=== PATIENT | female | born 1960 | race Caucasian/White ===

== ENCOUNTER 2016-02-21 13:32 | Emergency (ER) | payer OTHER ==
[2016-02-21 13:37] VITALS: TEMP 98.8
--- NOTE | 2016-02-21 13:48 | CPEKG ---
Heart Rate: 87 RR Interval: 690 P-R Interval: 140 QRSD Interval: 86 QT Interval: 412 QTC Interval: 496 P [place]: 50 QRS [place]: 19 T Wave [place]: 47 EKG Severity - BORDERLINE ECG - EKG Impression: SINUS RHYTHM EKG Impression: BORDERLINE INFERIOR Q WAVES EKG Impression: BORDERLINE PROLONGED QT INTERVAL Electronically Signed By: Clint Worley 21-Feb-2016 13:57:14
--- NOTE | 2016-02-21 13:57 | EDPHY ---
H & P Time Seen by Provider: 02/21/16 13:41 HPI/ROS: CHIEF COMPLAINT: Shortness of breath for 2 weeks HISTORY OF PRESENT ILLNESS: This 56-year-old woman works at [employer] but has been on vacation for the past 2 weeks. She describes having a nonproductive cough and some congestion for the past 2 weeks associated with some tightness in her upper chest and shortness of breath especially with exertion. She does not have hemoptysis, or leg swelling. No recent immobilization. She does not have orthopnea. Her coworkers brought her to the emergency department today for evaluation. REVIEW OF SYSTEMS: Eye: no change in vision ENT: no sore throat, no jaw pain or neck symptoms Cardiac: Occasionally feels her heart pounding fast in her chest but no syncope. Pulmonary: HPI Abdomen: no vomiting, diarrhea, abdominal pain. No nausea. Musculoskeletal: no back pain or leg swelling Skin: no rash Neuro: no headache Constitutional: no fever : no urinary symptoms A comprehensive 10 point review of systems is otherwise negative aside from elements mentioned in the history of present illness. PAST MEDICAL HISTORY: Hypothyroid and anxiety. Denies hypertension or diabetes. Denies hypercholesterolemia. Social history: Former smoker, none recently. No cocaine/drugs. Father had myocardial infarction at her age. General Appearance: Alert and conversant, cooperative. Eyes: No scleral icterus. ENT, Mouth: Normal mucous membranes. Respiratory: Normal respiratory effort, breath sounds equal, lungs are clear to auscultation. Cardiovascular: Regular rate and rhythm. No murmur. Gastrointestinal: Abdomen is soft and non tender. Neurological: Alert and oriented x3. Normally conversant. Face symmetric, normal movement and sensation in all extremities. Skin: Warm and dry, no rashes. Musculoskeletal: No peripheral edema and no joint swelling. No calf tenderness. Psychiatric: Not agitated. Emergency Department course/MDM: More likely upper respiratory infection than cardiac disease or venous thromboembolism. Plan for EKG, chest x-ray, troponin and D-dimer. 1429: D-dimer noted at 0.38, less than 0.5; I think this result makes pulmonary embolism extremely unlikely at this time. Results discussed with patient. I think most likely low grade URI with cough present. ACS considered but think unlikely considering the entire clinical picture including negative EKG and troponin. Smoking Status: Former smoker Constitutional: Initial Vital Signs Temperature (C) 37.1 C 02/21/16 13:35 Heart Rate 84 02/21/16 13:35 Respiratory Rate 14 02/21/16 13:35 Blood Pressure 161/100 H 02/21/16 13:35 O2 Sat (%) 97 02/21/16 13:35 O2 Delivery Mode Room Air Allergies/Adverse Reactions: erythromycin base Allergy (Verified 02/21/16 13:37) Medical Decision Making - Diagnostics EKG Interpretation: 12-lead EKG interpreted by me; official reading is in trace master. My interpretation is sinus rhythm, probably non clinically significant inferior Q- waves noted, borderline prolonged QT. Imaging: Chest x-ray viewed independently by myself in PACs is normal. Differential Diagnosis: Differential diagnosis considered for shortness of breath including but not limited to pulmonary infectious process, COPD, asthma, pulmonary embolus and congestive heart failure. - Data Points Laboratory Results: Laboratory Results 02/21/16 13:56 02/21/16 13:56 02/21/16 13:56 WBC 5.71 10^3/uL (3.80-9.50) RBC 4.42 10^6/uL (4.18-5.33) Hgb 14.0 g/dL (12.6-16.3) Hct 39.0 % (38.0-47.0) MCV 88.2 fL (81.5-99.8) MCH 31.7 pg (27.9-34.1) MCHC 35.9 g/dL (32.4-36.7) RDW 12.3 % (11.5-15.2) Plt Count 285 10^3/uL (150-400) MPV 9.6 fL (8.7-11.7) Neut % (Auto) 57.9 % (39.3-74.2) Lymph % (Auto) 32.7 % (15.0-45.0) [place] % (Auto) 7.4 % (4.5-13.0) Eos % (Auto) 1.4 % (0.6-7.6) Baso % (Auto) 0.4 % (0.3-1.7) Nucleat RBC Rel Count 0.0 % (0.0-0.2) Absolute Neuts (auto) 3.31 10^3/uL (1.70-6.50) Absolute Lymphs (auto) 1.87 10^3/uL (1.00-3.00) Absolute Monos (auto) 0.42 10^3/uL (0.30-0.80) Absolute Eos (auto) 0.08 10^3/uL (0.03-0.40) Absolute Basos (auto) 0.02 10^3/uL (0.02-0.10) Absolute Nucleated RBC 0.00 10^3/uL (0-0.01) Immature Gran % 0.2 % (0.0-1.1) Immature Gran # 0.01 10^3/uL (0.00-0.10) D-Dimer 0.38 ug/mLFEU (0.00-0.50) Sodium 144 mEq/L (134-144) Potassium 3.8 mEq/L (3.5-5.2) Chloride 106 mEq/L (97-110) Carbon Dioxide 28 mEq/l (22-31) Anion Gap 10 mEq/L (8-16) BUN 17 mg/dL (7-23) Creatinine 0.8 mg/dL (0.6-1.0) Estimated GFR > 60 Glucose 100 mg/dL (70-100) Calcium 9.3 mg/dL (8.5-10.4) Troponin I < 0.012 ng/mL (0-0.034) Departure - Departure Disposition: Home, Routine, Self-Care Clinical Impression: Dyspnea, Acute URI Condition: Good Instructions: Dyspnea (ED) Referrals: Irlanda Zepeda MD [Primary Care Provider] - As per Instructions (Please follow-up with your doctor within the next week. Return if you get worsening shortness of breath or chest pain.)
[2016-02-21 14:06] LABS: % IMMATURE GRANULYOCYTES 0.2 % (0.0-1.1); ABSOLUTE IMMATURE GRANULOCYTES 0.01 10^3/uL (0.00-0.10); ADD DIFF? NO; ADD MORPH? NO; ADD SCAN? NO; ATYPICAL LYMPHOCYTE FLAG 0 (0-99); FRAGMENT RBC FLAG 0 (0-99); LEFT SHIFT FLG 0 (0-99); LIPEMIA HEMOLYSIS FLAG 90 (0-99); MEAN CELL HEMOGLOBIN 31.7 pg (27.9-34.1); MEAN CELL HEMOGLOBIN CONCENTR. 35.9 g/dL (32.4-36.7); MEAN CELL VOLUME 88.2 fL (81.5-99.8); MEAN PLATELET VOLUME 9.6 fL (8.7-11.7); PLATELET CLUMPS FLAG 60 (0-99); PLATELET COUNT 285 10^3/uL (150-400); RED BLOOD CELL COUNT 4.42 10^6/uL (4.18-5.33); RED CELL DISTRIBUTION WIDTH 12.3 % (11.5-15.2)
[2016-02-21 14:27] VITALS: RESP 16
[2016-02-21 14:27] LABS: ANION GAP 10 mEq/L (8-16); CALCIUM 9.3 mg/dL (8.5-10.4); CARBON DIOXIDE 28 mEq/l (22-31); CHLORIDE 106 mEq/L (97-110); CREATININE 0.8 mg/dL (0.6-1.0); GLOMERULAR FILTRATION RATE > 60; GLUCOSE 100 mg/dL (70-100); POTASSIUM 3.8 mEq/L (3.5-5.2); SODIUM 144 mEq/L (134-144)
[2016-02-21 14:39] LABS: TROPONIN I < 0.012 ng/mL (0-0.034)
--- NOTE | 2016-02-21 14:47 | DX ---
PA and Lateral Chest X-ray 1411 hours History: Chest pain with intermittent Shortness of breath. Findings: Heart size and pulmonary vasculature are normal. The lungs are clear without infiltrates or effusions. There is no pneumothorax. The osseous structures are intact. Impression: Normal chest x-ray.
[2016-02-21 14:49] VITALS: BP 145/88; PULSE 79; O2SAT 96
== END 2016-02-21 14:54 | disposition home or self-care (01) ==
DX: R06.00 Dyspnea, unspecified (principal); J06.9 Acute upper respiratory infection, unspecified; Z87.891 Personal history of nicotine dependence

== ENCOUNTER → 2016-05-02 | Outpatient (CLI) | payer OTHER | LOC: FIMAGING 10:27 | PROVIDERS: ATTEND Internal Medicine Interventional Cardiology | DX: Z13.6 Encounter for screening for cardiovascular disorders (principal); Z82.49 Family history of ischemic heart disease and other diseases of the circulatory system; Z87.891 Personal history of nicotine dependence; K44.9 Diaphragmatic hernia without obstruction or gangrene; R92.8 Other abnormal and inconclusive findings on diagnostic imaging of breast ==

== ENCOUNTER → 2016-05-14 | Outpatient (CLI) | payer OTHER | LOC: FIMAGING 09:56 | DX: Z12.31 Encounter for screening mammogram for malignant neoplasm of breast (principal) | CPT/HCPCS: G0202 ==

== ENCOUNTER → 2017-05-19 | Outpatient (CLI) | payer OTHER | LOC: FIMAGING 07:38 | PROVIDERS: ATTEND Internal Medicine | DX: Z12.31 Encounter for screening mammogram for malignant neoplasm of breast (principal) ==

== ENCOUNTER 2017-10-04 | Emergency (ER) | payer OTHER | END 2017-10-04 13:50 | disposition home or self-care (01) | PROC: 0RSKXZZ Reposition Left Shoulder Joint, External Approach (ICD-10-PCS; principal; 2017-10-04) | DX: S43.005A Unspecified dislocation of left shoulder joint, initial encounter (principal); X50.0XXA Overexertion from strenuous movement or load, initial encounter; V48.4XXA Person boarding or alighting a car injured in noncollision transport accident, initial encounter; Y99.8 Other external cause status | CPT/HCPCS: 96374; A4565; J3010 ==